=== PATIENT | female | born 1940 | race Caucasian/White ===

== ENCOUNTER 2021-10-21 14:15 | Outpatient (RCR) | payer OTHER, SELFPAY | END 2021-11-21 13:00 | disposition home or self-care (01) | PROVIDERS: PCP Family Medicine; Visit Provider Family Medicine | DX: M25.552 Pain in left hip (principal) | CPT/HCPCS: 97110; 97140; 97530 ==

== ENCOUNTER 2022-04-06 23:56 | Emergency (ER) | payer OTHER, SELFPAY ==
[2022-04-06 23:59] VITALS: BP 168/78; PULSE 81; RESP 16; TEMP 36.8; O2SAT 99; BMI 25.5
--- NOTE | 2022-04-07 00:13 | ED.NURSE ---
Exam per Dr. Dunn.
--- NOTE | 2022-04-07 00:41 | ED.EPISTAXIS ---
History of Present Illness General Chief Complaint: Epistaxis/Nosebleed Stated Complaint: nose bleed Time Seen by Provider: 04/07/22 00:07 History of Present Illness HPI Narrative: Pt is a 82 year old woman who present with left sided epistaxis which occurred after a coughing episode tonight. The patient has not pain. The bleeding was initially brisk but has slowed to nothing at this point. Pt takes no blood thinners or aspirin. Pt has not been ill but did spend a significant amount of time outside shovelling today. Pt has had no trauma to the nose. The bleeding had been going on for 30 minutes. Pt did have blood going down the back of her throat but that has stopped as well. Related Data Home Medications Medication Instructions Recorded Confirmed levothyroxine 75 mcg tablet mcg PO DAILY 04/07/22 rosuvastatin 5 mg tablet 5 mg PO DAILY 04/07/22 04/07/22 Allergies Allergy/AdvReac Type Severity Reaction Status Date / Time cephalexin [From Keflex] Allergy Mild Rash Verified 04/07/22 00:05 Review of Systems Status of ROS: Reports: 10 or more systems reviewed and unremarkable except as noted in History and below [facility] Medical History (Updated 04/07/22 @ 00:48 by Isreal Dunn MD) Hyperlipidemia Hypothyroidism Exam Narrative: Exam Narrative: EXAM GENERAL: Patient appears comfortable and well. EYES: No scleral icterus. ENT: No further bleeding from either nostril with inflamed mucosa noted. No further pharyngeal bloody drainage. THYROID: no thyroid nodules or thyromegaly. LYMPH: No supraclavicular or cervical lymphadenopathy. SKIN: Visible skin seen during exam normal or with benign process only. EXT: No dependent lower extremity pedal edema. HEART: Regular rate and rhythm with no murmurs, rubs, or gallops. LUNGS: Clear to auscultation bilaterally with no crackles or wheezes. ABD: Soft, non tender, non distended. PSYCH: Good eye contact, speech is not pressured. Const: Vital Signs, click to edit/add: Vital Signs - 24 hr 04/06/22 23:59 Temperature 98.2 F Pulse Rate [Right Pulse Oximeter] 81 Respiratory Rate 16 Blood Pressure [Ri ght Upper Arm] 168/78 H Pulse Oximetry 99 Oxygen Delivery Me thod Room Air Course Course Hospital Course: Pt seen and examined. We did observe for 45 minutes with no further bleeding. Vital Signs Vital signs: Initial Vital Signs Temperature 98.2 F 04/06/22 23:59 Temperature Source Temporal Artery Scan 04/06/22 23:59 Pulse Rate 81 04/06/22 23:59 Respiratory Rate 16 04/06/22 23:59 Blood Pressure 168/78 H 04/06/22 23:59 Blood Pressure Mean 108 04/06/22 23:59 Blood Pressure Position Sitting 04/06/22 23:59 Pulse Oximetry 99 04/06/22 23:59 Oxygen Delivery Method 04/06/22 23:59 Vital Signs Temperature 98.2 F 04/06/22 23:59 Pulse Rate 81 04/06/22 23:59 Respiratory Rate 16 04/06/22 23:59 Blood Pressure 168/78 H 04/06/22 23:59 Pulse Oximetry 99 04/06/22 23:59 Oxygen Delivery Method 04/06/22 23:59 Temperature 98.2 F 04/06/22 23:59 Pulse Rate 81 04/06/22 23:59 Respiratory Rate 16 04/06/22 23:59 Blood Pressure 168/78 H 04/06/22 23:59 Pulse Oximetry 99 04/06/22 23:59 Oxygen Delivery Method 04/06/22 23:59 MDM - Epistaxis MDM Narrative Medical decision making narrative: Pt presented with a recent epistaxis. No longer bleeding. Exam showed inflamed mucosa of both nostrils with no other findings. Pt observed with no further bleeding. Not on blood thinners or aspirin. Pt advised not to blow nose and to begin saline irrigation tomorrow with vaseline to follow. Follow up with PCP as needed. Differential Diagnosis Differential diagnosis: Likely nasal bone fracture, anterior epistaxis and posterior epistaxis Discharge Plan Discharge Clinical Impression: Epistaxis Patient Disposition: Home, Self-Care Condition: Stable Instructions: Nosebleed (ED) Additional Instructions: Nasal saline spray starting tomorrow Vaseline at night Activity Level: No Restrictions Discharge Diet: Regular Prescriptions: No Action levothyroxine 75 mcg tablet PO DAILY Label Comments: TAKE 1 TABLET (75 MCG) BY MOUTH BEFORE BREAKFAST. rosuvastatin 5 mg tablet 5 mg PO DAILY Label Comments: TAKE ONE TABLET BY MOUTH AT BEDTIME Follow Up/Referrals: Gerri White MD [Primary Care Provider] - Stand Alone Forms: [email or web address] Info Instructions
== END 2022-04-07 00:52 | disposition home or self-care (01) ==
LOC: ED 04-07 00:49
PROVIDERS: Emergency Provider Internal Medicine; PCP Family Medicine
DX: Z53.21 Procedure and treatment not carried out due to patient leaving prior to being seen by health care provider (principal)
CPT/HCPCS: 99283

== ENCOUNTER 2022-04-07 02:19 | Emergency (ER) | payer OTHER, SELFPAY ==
[2022-04-07 02:33] VITALS: BP 117/66; PULSE 77; RESP 16; TEMP 36.4; O2SAT 100
[2022-04-07 02:40] VITALS: BP 64/40
[2022-04-07 02:43] VITALS: BP 101/50; PULSE 75; RESP 16; O2SAT 97
--- NOTE | 2022-04-07 02:46 | ED.EPISTAXIS ---
History of Present Illness General Chief Complaint: Epistaxis/Nosebleed Stated Complaint: nose bleed. Time Seen by Provider: 04/07/22 02:53 History of Present Illness HPI Narrative: Pt is an 82 year old woman who was seen earlier in the evening for epistaxis which stopped before she was seen. The patient was observed for 45 minutes and had no further bleeding. Pt went home and returned 2 hours later with return of epistaxis. Pt states the bleeding started suddenly and was uncontrollable. Pt states the bleeding has slowed but is still present. All bleeding is from the left nostril. No fever or chills. Pt denies any lightheadedness or chest pain. Related Data Home Medications Medication Instructions Recorded Confirmed levothyroxine 75 mcg tablet mcg PO DAILY 04/07/22 rosuvastatin 5 mg tablet 5 mg PO DAILY 04/07/22 04/07/22 Allergies Allergy/AdvReac Type Severity Reaction Status Date / Time cephalexin [From Keflex] Allergy Mild Rash Verified 04/07/22 00:05 Review of Systems Status of ROS: Reports: 10 or more systems reviewed and unremarkable except as noted in History and below PFSH PFSH Medical History Hyperlipidemia Hypothyroidism Social History Smoking Status: Never smoker How often do you have a drink containing alcohol: never AUDIT-C Alcohol total score: 0 Non-prescribed substance use: denies use service: No Exam Narrative: Exam Narrative: EXAM GENERAL: Patient appears comfortable and well. EYES: No scleral icterus. ENT: Small amount of bleeding present in the left nostril. THYROID: no thyroid nodules or thyromegaly. LYMPH: No supraclavicular or cervical lymphadenopathy. SKIN: Visible skin seen during exam normal or with benign process only. EXT: No dependent lower extremity pedal edema. HEART: Regular rate and rhythm with no murmurs, rubs, or gallops. LUNGS: Clear to auscultation bilaterally with no crackles or wheezes. ABD: Soft, non tender, non distended. PSYCH: Good eye contact, speech is not pressured. Const: Vital Signs, click to edit/add: Vital Signs - 24 hr 04/07/22 02:33 04/07/22 02:40 04/07/22 02:43 Temperature 97.6 F Pulse Rate [Pulse Oximeter] 77 75 Respiratory Rate 16 16 Blood Pressure [Le ft Upper Arm] 117/66 64/40 L 101/50 L Pulse Oximetry 100 97 Oxygen Delivery Me thod Room Air Course Course Hospital Course: Pt seen and examined. Anterior Posterior rhino rocket placed. Reevaluation(s) Reevaluation #1: Pt vomis a large amount of swallowed blood and now feels weak. Pt has IV placed and receives fluid bolus plus IV Zofran. CBC, BMP, Coags pending. Time: 02:51 Reevaluation #2: Bleeding stopped. No further vomiting. Pt's labs stable with Hgb of 11.5. Coags look normal. Pt feeling better. No headache or complications from the packing. Time: 03:35 Vital Signs Vital signs: Initial Vital Signs Temperature 97.6 F 04/07/22 02:33 Temperature Source Temporal Artery Scan 04/07/22 02:33 Pulse Rate 77 04/07/22 02:33 Respiratory Rate 16 04/07/22 02:33 Blood Pressure 117/66 04/07/22 02:33 Blood Pressure Mean 83 04/07/22 02:33 Pulse Oximetry 100 04/07/22 02:33 Oxygen Delivery Method 04/07/22 02:33 Vital Signs Temperature 97.6 F 04/07/22 02:33 Pulse Rate 77 04/07/22 02:33 Respiratory Rate 16 04/07/22 02:33 Blood Pressure 117/66 04/07/22 02:33 Pulse Oximetry 100 04/07/22 02:33 Oxygen Delivery Method 04/07/22 02:33 Temperature 97.6 F 04/07/22 02:33 Pulse Rate 75 04/07/22 02:43 Respiratory Rate 16 04/07/22 02:43 Blood Pressure 101/50 L 04/07/22 02:43 Pulse Oximetry 97 04/07/22 02:43 Oxygen Delivery Method 04/07/22 02:33 MDM - Epistaxis MDM Narrative Medical decision making narrative: Pt presents with epistaxis. Bleeding noted from the left nostril. Anterior posterior packing placed. Pt's bleeding stopped. Pt felt extremely nauseated. Pt vomited a large amount of vomited blood. Pt labs show normal coags and a Hgb of 11.5. Pt given IV zofran and 1 liter normal saline Zofran ODT placed in [facility]. PCP arranged in 2 days. Differential Diagnosis Differential diagnosis: Likely nasal bone fracture, anterior epistaxis and posterior epistaxis Lab Data Labs: Lab Results 04/07/22 04/07/22 04/07/22 Range/Units 02:50 02:50 02:50 WBC 8.15 (4.50-11.00) K/uL RBC 3.45 L (4.00-5.20) m/uL Hgb 11.5 L (12.0-16.0) gm/dL Hct 34.1 (33.0-51.0) % MCV 99 (80-100) fL MCH 33 (26-34) pg MCHC 34 (32-36) gm/dL RDW Coeff of Edenilson 11.9 (11.5-15.5) % Plt Count 290 (140-440) K/uL Neut % (Auto) 55.2 (42.0-72.0) % Lymph % (Auto) 30.9 (20-44) % Hartley % (Auto) 10.2 (0.0-11.0) % Eos % (Auto) 2.6 (0.0-7.0) % Baso % (Auto) 0.5 (0.0-3.0) % Neut # (Auto) 4.50 (1.7-7.0) K/uL Lymph # (Auto) 2.52 (0.90-2.90) K/uL Hartley # (Auto) 0.80 (0.00-0.90) K/UL Eos # (Auto) 0.21 (0.00-0.50) K/uL Baso # (Auto) 0.04 (0.00-0.30) K/uL APTT 30 (23-33) Seconds Sodium 137 (135-149) mmol/L Potassium 3.9 (3.6-5.1) mmol/L Chloride 104 (96-114) mmol/L Carbon Dioxide 27 (20-32) mmol/L BUN 30 (7-30) mg/dL Creatinine 0.5 (0.5-1.5) mg/dL Estimated GFR 95 ml/min Glucose 139 H (60-115) mg/dL Calcium 9.0 (8.4-10.6) mg/dL Discharge Plan Discharge Clinical Impression: Epistaxis Patient Disposition: Home, Self-Care Condition: Stable Instructions: Nosebleed (ED) Additional Instructions: Leave packing in for 2 days [facility] and recheck Hgb. Activity Level: No Restrictions Discharge Diet: Regular Prescriptions: No Action levothyroxine 75 mcg tablet PO DAILY Label Comments: TAKE 1 TABLET (75 MCG) BY MOUTH BEFORE BREAKFAST. rosuvastatin 5 mg tablet 5 mg PO DAILY Label Comments: TAKE ONE TABLET BY MOUTH AT BEDTIME Follow Up/Referrals: Gerri White MD [Primary Care Provider] - Stand Alone Forms: [employer] Info Instructions
[2022-04-07] MEDS: 0.9 % SODIUM CHLORIDE 1000 ml 1,000 ML IV (02:55)
[2022-04-07 02:57] LABS: Basophils Absolute Auto 0.04 K/uL (0.00-0.30); Basophils Percent Auto 0.5 % (0.0-3.0); Eosinophils Absolute Auto 0.21 K/uL (0.00-0.50); Eosinophils Percent Auto 2.6 % (0.0-7.0); Hematocrit 34.1 % (33.0-51.0); Hemoglobin* 11.5 gm/dL (12.0-16.0); Immature Granulocytes Abs Auto 0.05 K/uL (0.00-0.30); Immature Granulocytes Pct Auto 0.6 %; Lymphocytes Absolute Auto 2.52 K/uL (0.90-2.90); Lymphocytes Percent Auto 30.9 % (20-44); Mean Corpuscular HGB Conc 34 gm/dL (32-36); Mean Corpuscular Hemoglobin 33 pg (26-34); Mean Corpuscular Volume 99 fL (80-100); Monocytes Percent Auto 10.2 % (0.0-11.0); Neutrophils Percent Auto 55.2 % (42.0-72.0); Platelet Count* 290 K/uL (140-440); RDW Coefficient of Variation % 11.9 % (11.5-15.5); Red Blood Count 3.45 m/uL (4.00-5.20); White Blood Count* 8.15 K/uL (4.50-11.00)
[2022-04-07] MEDS: ONDANSETRON 2 MG/ML inj 4 MG IVP (02:57)
[2022-04-07 03:00] VITALS: BP 110/59; PULSE 78; RESP 16; O2SAT 100
[2022-04-07 03:01] LABS: Slide Review Reflex No
[2022-04-07 03:10] LABS: Chloride* 104 mmol/L (96-114); Potassium* 3.9 mmol/L (3.6-5.1); Sodium* 137 mmol/L (135-149)
--- NOTE | 2022-04-07 03:11 | ED.NURSE ---
Rhino Rocket placed into left nare by provider. Shortly after patient put call light on and states she felt faint. Stockroom Worker was assisting to lay patient back and assess blood pressure. Patient sat up and vomited a moderate amount of blood. Patient cool and clamey and BP 60's/40's. MD updated. IV established, labs drawn and IVF started.
[2022-04-07 03:13] LABS: Blood Urea Nitrogen* 30 mg/dL (7-30); Carbon Dioxide* 27 mmol/L (20-32); Creatinine* 0.5 mg/dL (0.5-1.5); Estimated Glomerular Filt Rate 95 ml/min; Partial Thromboplastin Time* 30 Seconds (23-33)
[2022-04-07 03:14] LABS: Glucose* 139 mg/dL (60-115)
[2022-04-07 03:36] VITALS: BP 109/56; PULSE 80; RESP 16; O2SAT 98
[2022-04-07 03:37] VITALS: BP 117/55; PULSE 80; RESP 14; O2SAT 98
[2022-04-07 03:51] LABS: INR 0.94 (0.91-1.10); Prothrombin Time 13.2 Seconds
== END 2022-04-07 03:56 | disposition home or self-care (01) ==
PROVIDERS: Emergency Provider Internal Medicine; PCP Family Medicine
DX: R04.0 Epistaxis (principal)
CPT/HCPCS: 36415; 80048; 85025; 85610; 85730; 96374; 99283; 99284; J2405; J7030

== ENCOUNTER 2022-06-22 09:37 | Outpatient (CLI) | payer OTHER, SELFPAY | END 2022-06-22 09:38 | disposition home or self-care (01) | LOC: OP CLINIC 09:37 | PROVIDERS: PCP Family Medicine; Visit Provider Internal Medicine Gastroenterology | DX: R19.5 Other fecal abnormalities (principal); Q43.8 Other specified congenital malformations of intestine | CPT/HCPCS: 45378; 99153; J2250; J3010 ==